=== PATIENT | male | born 1960 | race Caucasian/White ===

== ENCOUNTER → 2018-01-25 | Outpatient (CLI) | payer BC ==
[~2018-01-25] MED LIST: LOPRESSOR25 PO; PAXIL10 MG; PRILOSEC20 MG PO
--- NOTE | 2018-02-08 13:20 | SLEEP ---
[facility] [address] [place] [address] SLEEP STUDY REPORT Name: MARBELLA MONTOYA Room: [facility]#: [id number] Admission: 01/25/18 Attend Phys: Jun Arcos Discharge: Date of : 62 Report #: [id number] THIS REPORT FOR: //name// CC: Adolfo Kim DO This study has been reviewed in its entirety by a board certified sleep specialist DATE OF SERVICE: 01/25/2018 ATTENDING PHYSICIAN: Dr. Adolfo Kim. The patient is 57 years old who weighs 240 pounds with a BMI of 32.5. The patient's [place] score was 16. The patient underwent home sleep study performed at [facility]. Total recording time was 501 minutes. During the night of study, the patient had 144 obstructive apneas, no central or mixed apneas and 200 hypopneas. The patient's apnea hypopnea index was 41 per hour with a supine index of 41 per hour as well. Nocturnal oximetry study revealed an average oxygen saturation of 92% with a lowest of 72%. 61 minutes were spent at oxygen saturation less than 90% and another 11 minutes with saturation of less than 85%. Mean heart rate of 61 beats per minute. IMPRESSION: 1. Severe sleep apnea-hypopnea syndrome with an AHI of 41 per hour. 2. Nocturnal hypoxia secondary to obstructive sleep apnea. RECOMMENDATIONS: 1. The patient would benefit from in-lab CPAP titration study. 2. Once optimum CPAP pressure is achieved, then follow up in 4-6 weeks to assess compliance to CPAP and to document clinical improvement. 3. Weight loss is strongly advised. 4. Avoid DEVELOPMENT EDITOR depressants. 5. Cautioned regarding driving until symptoms of sleep apnea resolve with the use of CPAP. <ELECTRONICALLY SIGNED> By: Abilio Anderson MD 02/08/18 1320 0757 [id number] Alta Anderson MD /nt
== END ==
LOC: M.SLEEPLAB 16:00
DX: G47.33 Obstructive sleep apnea (adult) (pediatric) (principal); R09.02 Hypoxemia; I10 Essential (primary) hypertension; K21.9 Gastro-esophageal reflux disease without esophagitis; E78.2 Mixed hyperlipidemia

== ENCOUNTER → 2020-10-15 | Outpatient (CLI) | payer OTHER ==
[2020-10-15] VITALS (9 sets, daily range): BP systolic 114–138; BP diastolic 68–92
[~2020-10-15] VITALS: Ht 182.9 cm; Wt 114.3 kg
[~2020-10-15] MED LIST changes: +COZAAR100 MG PO; +LIPITOR10 MG PO; +PRILOSEC OTC20 MG PO; +TOPROL XL50 MG PO; +ZETIA10 MG PO
[2020-10-15 09:29] LABS: HEMATOCRIT 42.5 % (42.0-52.0); HEMOGLOBIN 14.2 gm/dL (14.0-18.0); MCHC 33.4 g/dL (28.0-37.0); MCV 95.9 fL (80.0-100.0); MPV 7.4 fl. (7.2-11.1); RBC 4.43 mil/uL (4.50-6.00); RDW-CV 13.1 % (10.5-14.5); WBC 4.6 thou/uL (4.0-11.0)
[2020-10-15 09:41] LABS: ANION GAP 7 mmol/L (7-16); BUN 17 mg/dL (7-18); CALCIUM 8.9 mg/dL (8.5-10.1); CHLORIDE 107 mmol/L (98-107); CO2 28 mmol/L (21-32); CREATININE 1.2 mg/dL (0.6-1.3); GLUCOSE 107 mg/dL (70-99); POTASSIUM 4.5 mmol/L (3.5-5.1); SODIUM 142 mmol/L (136-145)
[2020-10-15 09:46] LABS: ALBUMIN 4.6 g/dL (3.4-5.0); ALKALINE PHOSPHATASE 91 U/L (46-116); SGOT 27 U/L (15-37); SGPT 49 U/L (30-65); TOTAL BILIRUBIN 0.5 mg/dL (<0.1-1.0); TOTAL PROTEIN 7.6 g/dL (6.4-8.2)
[2020-10-15 09:52] LABS: SERUM ASSESSMENT Clear
[2020-10-15 10:00] LABS: APTT 24.9 Seconds (25.0-31.3); INR 0.9; PROTIME 9.5 Seconds (9.20-11.50)
[2020-10-15 10:03] LABS: CHOLESTEROL 141 mg/dL (<200); HDL CHOLESTEROL 56 mg/dL (>40); LDL CHOLESTEROL 65 mg/dL (<100); TC:HDL 2.5 Ratio (Not establshd); TRIGLYCERIDE 104 mg/dL (<150); VLDL 21 mg/dL (<40)
--- NOTE | 2020-10-15 12:25 | EKG ---
[place] [address] ELECTROCARDIOGRAM REPORT Name: JANMARBELLA Tyler Room: [facility]#: [id number] Admission: 10/15/20 Attend Phys: Chino Fregoso, Discharge: Date of : 62 Date of Service: 10/15/20 0946 Report #: [id number] THIS REPORT FOR: //name// [facility] Test Date: 2020-10-15 Test Time: 09:46:08 Pat Name: MARBELLA MONTOYA Department: Room: Gender: Avionics Technician: : 1960 Requested By: Chino Fregoso Order Number: [id number] Reading MD: Raul Shah Measurements Intervals [place] Rate: 50 P: 24 [place]: 156 QRS: 4 QRSD: 105 T: 5 QT: 456 QTc: 416 Interpretive Statements Sinus bradycardia Left ventricular hypertrophy Baseline wander in lead(s) II,III,aVF Compared to ECG 03/17/2014 03:12:43 Left ventricular hypertrophy now present rate has slowed Electronically Signed On 10-15-2020 12:25:01 CDT by Raul Shah [email or web address] <ELECTRONICALLY SIGNED> By: Raul Shah MD, [facility] 10/15/20 1225 0946 Raul Shah MD, [facility] /EPI
--- NOTE | 2020-10-15 17:29 | CARD ---
[address] [address] CARDIAC CATH REPORT Name: MARBELLA MONTOYA [facility] [id number] Admission: 10/15/20 Attend Phys: Chino Fregoso MD Discharge: Date of : 62 Report #: [id number] THIS REPORT FOR: cc: Adolfo Kim Vincent R. DO Liston, Michael J. MD [facility] ~ APPROVED REPORT Study performed: 10/15/2020 09:26:23 Patient Details Patient Status: Out-Patient Room #: The patient is a 60 year-old male Event Personnel Chino Fregoso Telemarketing Supervisor, Sarah Gracia RN RN, Mahesh Villar, Eliel Posey Jessie RTR, Monitor Procedures Performed Art Access - R femoral artery* Left Heart Cath w/or w/o Coronaries [id number] [facility] Hemostasis w/ Mynx Admission/Lab Medications/Medications given during procedure Solumedrol IV 125 mg, Benadryl IV 50 mg, Oxygen Nasal cannula 2 l per min, 0.9% Sodium Chloride IV 75 ml per hr, Lidocaine Subcut 14 ml Procedure Narrative The patient was brought electively to the Cardiac Catheterization Laboratory and was prepped and draped in a sterile manner. The right femoral was infiltrated with 2% Lidocaine subcutaneous anesthesia. IV conscious sedation was used throughout procedure with appropriate monitoring and was performed in the presence of a registered nurse who was an independent trained observer other than the physician performing the procedure. A [place] 6 FR sheath was inserted into the right femoral artery. Coronary angiography was performed using coronary diagnostic catheters. The right coronary system was accessed and visualized with a Diagnostic 6 Fr JR 4 catheter. The left coronary system was accessed and visualized with a Diagnostic 6 Fr JL 4 catheter. The left ventricle was accessed and visualized with a Diagnostic 6 Fr Pigtail catheter. Left ventricular/Aortic Valve gradient assessed via catheter pullback. Left ventriculogram was performed in LYON projection. Pre-dem[place] [address] CARDIAC CATH REPORT Name: MARBELLA MONTOYA Room: [facility]#: [id number] Admission: 10/15/20 Attend Phys: Chino Fregoso MD Discharge: Date of : 62 Report #: [id number] performed . Closure device was deployed with a Fr MynxGrip 6/7F. The patient tolerated the procedure well and there were no complications associated with the procedure. A hematoma occurred. Intraoperative Conscious Sedation Sedation start time: 10:28 Case end Time: 10:35 Fentanyl 25 mcg Versed 1 mg Fluoro Time: 1.4 minutes Dose: DAP 99732 cGycm2 657 mGy Contrast Type and Amount: Omnipaque 70 ml Diagnostic Cath Left Main The left anterior descending coronary artery is normal and trifurcates into a left anterior descending, intermediate ramus and circumflex coronary artery. LAD The left anterior descending coronary artery is normal in its proximal mid and distal portion. Diagonal 1 A large first diagonal branch is normal. Circumflex The circumflex coronary artery is normal in its proximal mid and distal portion. The circumflex terminates in a obtuse marginal branch. OM1 The first obtuse marginal branch is large and branched and normal. Right Coronary The right coronary artery appears normal in the proximal mid and distal portion. R PDA The right PDA is a small vessel that appears normal. RPLV A moderate-sized right posterior lateral LV branch is moderate in size and branched and appears normal. Ramus A large intermediate ramus branch with marginal distribution is normal in the proximal mid and distal portion. Left Ventriculography The left ventricle is normal in size with normal contractility. The left ventricular ejection fraction is estimated to be 65%. Left ventricular wall motion abnormalities are not present. Hemodynamics The aortic pressure is 157/90 mmHg with a mean of 101 mmHg. The left ventricular pressure is 146/13 mmHg with a mean of mmHg. The left ventricular end diastolic pressure is 20 [place] [address] CARDIAC CATH REPORT Name: ARACELI MONTOYAIN Room: [facility]#: [id number] Admission: 10/15/20 Attend Phys: Chino Fregoso MD Discharge: Date of : 62 Report #: [id number] 1. Normal left ventricular systolic function. 2. Normal coronary arteries. 3. Moderately elevated left ventricular end-diastolic pressure. Recommendations Continue aggressive risk factor modification and medical management. <ELECTRONICALLY SIGNED> By: Chino Fregoso MD, [facility] 10/15/201727 27 27Michayden Fregoso MD, FACC /INF
== END | disposition home or self-care (01) ==
LOC: M.CL 08:38
PROVIDERS: ATTEND Internal Medicine Cardiovascular Disease
DX: R94.39 Abnormal result of other cardiovascular function study (principal); I11.0 Hypertensive heart disease with heart failure; I50.30 Unspecified diastolic (congestive) heart failure; K21.9 Gastro-esophageal reflux disease without esophagitis; E78.5 Hyperlipidemia, unspecified; Z98.890 Other specified postprocedural states; Z79.899 Other long term (current) drug therapy; Z20.822 Contact with and (suspected) exposure to COVID-19; Z88.0 Allergy status to penicillin; Z88.8 Allergy status to other drugs, medicaments and biological substances

== ENCOUNTER 2021-01-10 13:56 | Emergency (ER) | payer OTHER ==
[~2021-01-10] VITALS: Ht 182.9 cm; Wt 113.4 kg
[2021-01-10] MEDS ORDERED: HYDROCODON-ACE1 EAC7 PO ×2 (16:18→16:41)
[2021-01-10] MEDS ORDERED: CEPHALEXIN500 MG PO ×2 (16:19→16:40)
[2021-01-10 16:43] VITALS: BP 141/70
== END 2021-01-10 16:43 | disposition home or self-care (01) ==
LOC: M.ERS 13:56
DX: S61.112A Laceration without foreign body of left thumb with damage to nail, initial encounter (principal); S61.211A Laceration without foreign body of left index finger without damage to nail, initial encounter; S61.213A Laceration without foreign body of left middle finger without damage to nail, initial encounter; I10 Essential (primary) hypertension; K21.9 Gastro-esophageal reflux disease without esophagitis; E78.5 Hyperlipidemia, unspecified; Z79.899 Other long term (current) drug therapy; Z88.0 Allergy status to penicillin; Z91.02 Food additives allergy status; Z91.013 Allergy to seafood; X58.XXXA Exposure to other specified factors, initial encounter; Y93.89 Activity, other specified; Y92.89 Other specified places as the place of occurrence of the external cause; Y99.8 Other external cause status